=== PATIENT | female | born 1985 | race Caucasian/White ===

== ENCOUNTER 2018-03-29 15:23 | Emergency (ER) | payer OTHER ==
[~2018-03-29] VITALS: Ht 175.3 cm; Wt 112.5 kg
[2018-03-29] MEDS ORDERED: CLONAZEPAM1 MG (15:48)
[2018-03-29] MEDS ORDERED: SEROQUEL50 MG (15:55)
[2018-03-29] MEDS ORDERED: AMBIEN10 MG (15:55)
== END 2018-03-29 20:35 | disposition home or self-care (01) ==
LOC: ER 15:23
DX: J11.1 Influenza due to unidentified influenza virus with other respiratory manifestations (principal); B34.9 Viral infection, unspecified

== ENCOUNTER 2018-04-06 15:34 | Emergency (ER) | payer OTHER ==
[~2018-04-06] VITALS: Ht 175.3 cm; Wt 102.1 kg
[~2018-04-06 15:34] MED LIST: AMBIEN10 MG; CLONAZEPAM1 MG; SEROQUEL50 MG
[2018-04-06] MEDS ORDERED: SEROPHENE50 MG (15:58)
[2018-04-06] MEDS ORDERED: LITHIUM8 MEQ/5 ML (15:59)
[2018-04-06] MEDS ORDERED: WELLBUTRIN SR200 MG (15:59)
== END 2018-04-06 18:11 | disposition home or self-care (01) ==
LOC: ER 15:34
DX: S90.01XA Contusion of right ankle, initial encounter (principal); W18.39XA Other fall on same level, initial encounter; Y93.89 Activity, other specified; Y92.098 Other place in other non-institutional residence as the place of occurrence of the external cause; Y99.8 Other external cause status

== ENCOUNTER 2020-01-12 16:51 | Emergency (ER) | payer OTHER ==
[~2020-01-12] VITALS: Ht 175.3 cm; Wt 102.5 kg
[~2020-01-12 16:51] MED LIST changes: +LITHIUM8 MEQ/5 ML; +SEROPHENE50 MG; +WELLBUTRIN SR200 MG
[2020-01-12] MEDS ORDERED: ZYPREXA2.5 MG (17:08)
== END 2020-01-12 20:18 | disposition home or self-care (01) ==
LOC: ER 16:51
DX: N39.0 Urinary tract infection, site not specified (principal); R10.2 Pelvic and perineal pain; Z03.818 Encounter for observation for suspected exposure to other biological agents ruled out